=== PATIENT | male | born 1995 | race Caucasian/White ===

== ENCOUNTER 2020-08-04 11:17 | Emergency (ER) | payer BC, SELFPAY ==
[2020-08-04 11:38] VITALS: BP 126/62; PULSE 60; RESP 16; TEMP 37.1; O2SAT 98; BMI 24.3
[2020-08-04 11:43] VITALS: BP 126/62; PULSE 60; RESP 16; TEMP 37.1; O2SAT 98
--- NOTE | 2020-08-04 11:44 | HMH.EDUTC ---
[facility] [place] Disposition Clinical Impression: Viral syndrome, Exposure to COVID-19 virus Disposition: Home, Self-Care Condition on Discharge: Good Instructions: Preventing the Spread of Coronavirus Discharge Instructions Additional Instructions: Drink plenty of fluids. Take tylenol for pain or fever. Return if you begin to have difficulty breathing. Follow up with your regular doctor. GO TO THE ER FOR ANY WORSENING SYMPTOMS Prescriptions: Azithromycin [Z-Ej 250mg Tab*] 250 mg PO UD DOSE PK #6 tab Transmission Status: Pending to [facility] Referrals: Jeremiah Shrestha MD [Primary Care Provider] - Time of Disposition: 11:57 Medical Decision Making - Medical Records Medical records reviewed: No: I reviewed the patient's medical records. - Christ Inquiry Pt receiving controlled substance: No Vital Signs: 08/04/20 11:38 08/04/20 11:43 Temperature 98.7 F 98.7 F Temperature Source Oral Oral Pulse Rate 60 Pulse Rate [Left] 60 Respiratory Rate 16 16 Blood Pressure 126/62 Blood Pressure [Right Arm] 126/62 Blood Pressure Mean [Right Arm] 83 Blood Pressure Source [Right Arm] Automatic Cuff Blood Pressure Position [Right Arm] Sitting 02 Sat by Pulse Oximetry 98 Oxygen Delivery Method Room Air Orders (Tests/Meds): ORDERS Category Date Time Status Covid-19 Nasal PCR Sendout P&C Routine Lab 08/04/20 11:30 Received [facility] [place] HPI - General Stated complaint: covid test Time Seen by Provider: 08/04/20 11:44 Mode of Arrival: Ambulatory Source of Information: Patient Limitations: No Limitations Description of Symptoms (Recalled from Triage Doc. by RN): Covid test-symptomatic unknown exposure HEENT Symptoms (Recalled from RN notes): Yes Resp Symptoms (Recalled from RN notes): No Skin Symptoms (Recalled from RN notes): No MS Symptoms (Recalled from RN notes): No Functional Status (Recalled from RN notes): wnl - History of Present Illness Provider Complaint: He states that he has not had a sense of taste and smell for the past 2 days. He has also had a sore throat. - Related Data Previous Rx's Medication Instructions Recorded Azithromycin [Z-Ej 250mg Tab*] 250 mg PO UD DOSE PK #6 tab 08/04/20 Allergies Allergy/AdvReac Type Severity Reaction Status Date / Time No Known Allergies Allergy Verified 08/04/20 11:41 - Worker's Comp Is this a Worker's Comp case?: No Is this an H Worker's Comp?: No Is this a Kimberly Worker's Comp?: No [facility] History - Hepatitis A Screen Drug use history?: No High risk sexual behaviors?: No History of sexually transmitted infection?: No Currently employed?: No Childcare worker?: No Do you have indoor plumbing?: Yes Do you have electricity?: Yes Attestation statement:: This patient has been screened for Hepatitis A risk factors. I have reviewed the patient's past medical history: Yes Laterality Cases: Bilateral: Tonsillectomy - Social History Smoking Status: Current every day smoker Tobacco Type: cigarettes, smokeless tobacco # Packs/Day (cigarettes): 1 Alcohol Intake: never Alcohol Intake Frequency:: a few times a month Substance Use Type: marijuana Occupational Status: employed Housing: house Household Members: significant other Family Hx:: Cancer, Hypertension, Heart Attack ROS Obtained: Yes All systems reviewed & no additional complaints - Constitutional Constitutional: Reports system reviewed and no additional complaints, except as docu, Reports chills, Denies fever(s), Reports poor appetite, Reports malaise - Eyes Eyes: Reports system reviewed and no additional complaints, except as docu - ENT Ears, Nose, Mouth, and Throat: Reports system reviewed and no additional complaints, except as docu - Cardiovascular Cardiovascular: Reports system reviewed and no additional complaints, except as docu - Respiratory Respiratory: Yes system reviewed and no additional complaints, except as docu - Gastrointestinal Angela
[2020-08-05 09:19] LABS: Covid-19 Nasal PCR Sendout P&C POSITIVE
--- NOTE | 2020-08-05 10:03 | PC.NURSE ---
ATTEMPTED TO CALL PT. NO ANSWER, WILL TRY AGAIN LATER.
--- NOTE | 2020-08-05 10:57 | PC.NURSE ---
PT NOTIFIED OF POSITIVE COVID RESULT
== END 2020-08-04 12:20 | disposition home or self-care (01) ==
PROVIDERS: Emergency Provider Nurse Practitioner Family; PCP Family Medicine
DX: U07.1 COVID-19 (principal); F17.210 Nicotine dependence, cigarettes, uncomplicated
CPT/HCPCS: 99201; U0004

== ENCOUNTER 2020-12-04 16:39 | Emergency (ER) | payer BC, SELFPAY ==
[2020-12-04 16:47] VITALS: BP 124/64; PULSE 78; RESP 19; TEMP 36.6; O2SAT 100; BMI 23.6
--- NOTE | 2020-12-04 17:12 | HMH.EDUTC ---
[facility] [place] Disposition Clinical Impression: STD exposure Disposition: Home, Self-Care Condition on Discharge: Good Instructions: Chlamydia: The Silent STD Additional Instructions: Take the medication as directed. Follow up with your primary care doctor for the results of your test. GO TO THE ER FOR ANY WORSENING SYMPTOMS OR CONCERNS Prescriptions: Azithromycin [Azithromycin 500mg Tab] 1,000 mg PO ONCE #2 tab Transmission Status: Received by [facility] Referrals: Julia Silva MD [Primary Care Provider] - Time of Disposition: 17:17 Medical Decision Making - Medical Records Medical records reviewed: No: I reviewed the patient's medical records. - Christ Inquiry Pt receiving controlled substance: No Vital Signs: 12/04/20 16:47 Temperature 97.8 F Temperature Source Oral Pulse Rate [Right] 78 Respiratory Rate 19 Blood Pressure [Right Arm] 124/64 Blood Pressure Mean [Right Arm] 84 02 Sat by Pulse Oximetry 100 Oxygen Delivery Method Room Air [facility] HPI - General Stated complaint: STD test Time Seen by Provider: 12/04/20 17:12 Mode of Arrival: Ambulatory Source of Information: Patient Limitations: No Limitations Description of Symptoms (Recalled from Triage Doc. by RN): PT REQUESTS TESTING FOR CHLAMYDIA. EXGIRLFRIEND CALLED HIM AND STATES SHE HAS IT. HEENT Symptoms (Recalled from RN notes): No Resp Symptoms (Recalled from RN notes): No Skin Symptoms (Recalled from RN notes): No MS Symptoms (Recalled from RN notes): No Functional Status (Recalled from RN notes): NA - History of Present Illness Provider Complaint: He states that his ex-girlfriend notified him that she was positive for chlamydia. He denies any symptoms. - Related Data Previous Rx's Medication Instructions Recorded Azithromycin [Z-Ej 250mg Tab*] 250 mg PO UD DOSE PK #6 tab 08/04/20 Azithromycin [Azithromycin 500mg 1,000 mg PO ONCE #2 tab 12/04/20 Tab] Allergies Allergy/AdvReac Type Severity Reaction Status Date / Time No Known Allergies Allergy Verified 12/04/20 16:47 - Worker's Comp Is this a Worker's Comp case?: No [facility] History - Hepatitis A Screen Drug use history?: No High risk sexual behaviors?: No History of sexually transmitted infection?: No Currently employed?: No Childcare worker?: No Do you have indoor plumbing?: Yes Do you have electricity?: Yes Attestation statement:: This patient has been screened for Hepatitis A risk factors. I have reviewed the patient's past medical history: Yes Laterality Cases: Bilateral: Tonsillectomy - Social History Smoking Status: Current every day smoker Tobacco Type: cigarettes, smokeless tobacco # Packs/Day (cigarettes): 1 Alcohol Intake: never Alcohol Intake Frequency:: a few times a month Substance Use Type: marijuana Occupational Status: unemployed Housing: house Household Members: significant other Family Hx:: Cancer, Hypertension, Heart Attack ROS Obtained: Yes All systems reviewed & no additional complaints - Constitutional Constitutional: Denies chills, Denies fever(s) - Genitourinary Male Genitourinary: Reports as per HPI - Musculoskeletal Musculoskeletal: Denies back pain - Integumentary/Breasts Skin/Breast: Denies redness, Denies rash, Denies skin ulcer, Denies wounds - Neurologic Neurologic: Denies tingling/numbness/burning sensations Physical Exam - General General appearance: alert, in no apparent distress - Head Head exam: atraumatic, normocephalic, normal inspection - Eye Eye exam: Present: normal appearance, PERRL, EOMI - ENT ENT exam: Present: normal exam, normal oropharynx, mucous membranes moist, TM's normal bilaterally, normal external ear exam - Neck Neck exam: Present: normal inspection, full ROM, trachea midline. Absent: meningismus, lymphadenopathy - Chest Chest inspection: Present: normal inspection, symmetric chest wall rise. Absent: tenderness - Respiratory Respiratory exam: Present:
[2020-12-04 17:36] VITALS: BP 119/74; PULSE 74; RESP 16; TEMP 36.6
[2020-12-08 23:42] LABS: Neisseria gonorrhoeae, NAA Negative (Negative)
== END 2020-12-04 17:36 | disposition home or self-care (01) ==
PROVIDERS: Emergency Provider Nurse Practitioner Family; PCP Family Medicine
DX: Z20.2 Contact with and (suspected) exposure to infections with a predominantly sexual mode of transmission (principal)
CPT/HCPCS: 87491; 87591; 99202; G0463

== ENCOUNTER 2020-12-22 10:31 | Emergency (ER) | payer BC, SELFPAY ==
[2020-12-22 10:38] VITALS: BP 129/78; PULSE 70; RESP 18; TEMP 36.4; O2SAT 100; BMI 24.3
--- NOTE | 2020-12-22 10:39 | ECG_ITS ---
APPROVED REPORT Exam: Resting ECG HR:47 bpm ECG Measurements Heart Rate 47 AXES VA 150 P 56 QRSd 92 QRS 92 QT 418 T 74 QTc 369 Conclusion Marked sinus bradycardia Rightward axis Early repolarization Abnormal ECG Electronically signed by : Jeremiah Xie, 12/22/2020 17:43:42
--- NOTE | 2020-12-22 10:41 | HMH.EDGENADL ---
ED Disposition Clinical Impression: Vasovagal syncope Disposition: Home, Self-Care Condition on Discharge: Good Instructions: DI for Syncope in Adults (Fainting), Fainting Additional Instructions: You have been evaluated for syncopal episode, vasovagal. This is passing out that is related to an emotional event. Please continue to monitor your symptoms. Return to the emergency department if you have any dish no syncopal episodes, seizure-like activity, chest pain, shortness of breath, any other concerns. Referrals: Jeremiah Shrestha MD [Primary Care Provider] - Time of Disposition: 10:47 - Critical Care Critical Care Time: No Attestation: On , the high probability of a clinically significant, sudden or life threatening deterioration of the following system(s) required my full and direct attention, intervention and personal management. The time I documented below is in addition to time spent performing reported procedures but includes the following listed in this critical care notation. Medical Decision Making - Medical Records Medical records reviewed: Yes: I reviewed the patient's medical records. - Christ Inquiry Pt receiving controlled substance: No Vital Signs: 12/22/20 10:38 12/22/20 10:45 Temperature 97.6 F Temperature Source Oral Pulse Rate 56 L Pulse Rate [Right] 70 Respiratory Rate 18 Blood Pressure 129/78 Blood Pressure [Right Arm] 129/78 Blood Pressure Mean [Right Arm] 95 Blood Pressure Source [Right Arm] Automatic Cuff Blood Pressure Position [Right Arm] Supine 02 Sat by Pulse Oximetry 100 100 Oxygen Delivery Method Room Air - Lab Data Lab Results 12/22/20 10:35: WBC 9.6, RBC 4.80, Hgb 15.5, Hct 49.4, MCV 103.0 H, MCH 32.4 H, MCHC 31.4 L, RDW 12.8, Plt Count 261, MPV 7.3 L, Neut % (Auto) 51.4, Lymph % (Auto) 40.5, [place] % (Auto) 5.7, Eos % (Auto) 1.4, Baso % (Auto) 1.0, Neut # (Auto) 5.0, Lymph # (Auto) 3.9, [place] # (Auto) 0.6, Eos # (Auto) 0.1, Baso # (Auto) 0.1 12/22/20 10:35: Sodium 139, Potassium 4.0, Chloride 104, Carbon Dioxide 25, Anion Gap 14.0, BUN 14, Creatinine 0.80, Estimated Creat Clear 151, Estimated GFR 119, Est GFR ( Amer) 144, Glucose 130 H, Calcium 9.5 12/22/20 10:38: POC Glucose 112 H Result diagrams: 12/22/20 10:35 12/22/20 10:35 Orders (Tests/Meds): ED MEDICATIONS Discontinued Medications Generic Name Dose Route Start Last Admin Trade Name Freq PRN Reason Stop Dose Admin Ondansetron HCl 4 mg 12/22/20 10:50 12/22/20 10:50 Ondansetron 4mg/2ml Vial IV 12/22/20 10:51 4 mg ONCE ONE Administration ORDERS Category Date Time Status EKG Request [ECG Request by /Edu] Stat Y 12/22/20 10:39 Ordered Medical Decision Narrative: In summary this is a 25-year-old male presenting to the emergency department after a syncopal episode. Patient clinically stable on arrival. Vital signs within normal limits. Most likely diagnosis is vasovagal syncope. He does not have symptoms at this time besides nausea. Will obtain EKG, CBC, BMP. Fingerstick blood glucose is 127. EKG reassuring. No signs of ischemia or arrhythmia. Laboratory results unrevealing. On reassessment patient says he is feeling much better. He was able to tolerate oral intake, orange juice, in the emergency department. Given that this sounds to be an isolated event during a blood draw, do not believe that it was cardiac mediated syncope. Description of event does not sound like seizure. Patient counseled on precautions. Recommended close follow-up with his PCP. Return to the emergency department for any further episodes or any other concerns. General Adult HPI - General Stated complaint: possible seizure in Dr Longoria's office Time Seen by Provider: 12/22/20 10:42 Mode of Arrival: Wheelchair Source of Information: Patient, Relative - History of Present Illness HPI narrative: 25-year-old male presenting to the emergency department after a syncopal ep
[2020-12-22 10:45] VITALS: BP 129/78; PULSE 56; O2SAT 100
[2020-12-22 10:45] LABS: POC Glucose,Bedside 112 (70-110)
[2020-12-22 10:58] LABS: Chloride 104 mmol/L (98-107); Sodium 139 mmol/L (136-145)
[2020-12-22 10:59] LABS: Basophils # 0.1 K/mm3 (0-0.2); Eosinophils # 0.1 K/mm3 (0.0-0.4); Eosinophils % 1.4 % (0.1-12.0); Hematocrit 49.4 % (42.0-52.0); Hemoglobin 15.5 g/dL (14.1-18.0); Lymphocytes # 3.9 K/mm3 (0.7-4.5); Lymphocytes % 40.5 % (10-50); Mean Corpuscular HGB Conc 31.4 g/dL (31.8-35.4); Mean Corpuscular Hemoglobin 32.4 pg (27.0-31.2); Mean Platelet Volume 7.3 fl (7.4-10.4); Monocytes # 0.6 K/mm3 (0.1-1.0); Monocytes % 5.7 % (1.7-9.3); Neutrophils % 51.4 % (37.0-80.0); Platelet Count 261 K/mm3 (142-424); Red Cell Distribution Width 12.8 % (11.5-17.5); White Blood Count 9.6 K/mm3 (4.8-10.8)
[2020-12-22 11:01] LABS: Blood Urea Nitrogen 14 mg/dl (9-20); Creatinine Clearance Estimated 151 mL/min (50-200); Estimated Glomerular Filt Rate 119 ml/min (>60); GFR (African American) 144 ML/MIN (>60)
[2020-12-22 11:02] LABS: Calcium 9.5 mg/dl (8.4-10.2); Carbon Dioxide 25 mmol/L (22.0-30.0); Glucose 130 mg/dl (74-100)
[2020-12-22 11:40] VITALS: BP 108/57; PULSE 56; RESP 16; TEMP 36.8; O2SAT 98
== END 2020-12-22 11:41 | disposition home or self-care (01) ==
PROVIDERS: Emergency Provider Emergency Medicine; PCP Family Medicine
DX: R55 Syncope and collapse (principal); F17.290 Nicotine dependence, other tobacco product, uncomplicated; F12.10 Cannabis abuse, uncomplicated
CPT/HCPCS: 80048; 82962; 85025; 93005; 96374; 99282; J2405

== ENCOUNTER 2021-01-04 02:16 | Emergency (ER) | payer BC, SELFPAY ==
[2021-01-04 02:28] VITALS: BP 111/61; PULSE 58; RESP 24; TEMP 36.4; O2SAT 100; BMI 21.7
[2021-01-04 02:44] LABS: Basophils # 0.1 K/mm3 (0-0.2); Basophils % 0.5 % (0.1-2.0); Eosinophils # 0.1 K/mm3 (0.0-0.4); Eosinophils % 0.7 % (0.1-12.0); Hematocrit 49.2 % (42.0-52.0); Hemoglobin 16.5 g/dL (14.1-18.0); Lymphocytes # 2.8 K/mm3 (0.7-4.5); Mean Corpuscular HGB Conc 33.5 g/dL (31.8-35.4); Mean Corpuscular Hemoglobin 33.2 pg (27.0-31.2); Mean Corpuscular Volume 99.1 fl (80-94); Mean Platelet Volume 7.5 fl (7.4-10.4); Monocytes # 0.7 K/mm3 (0.1-1.0); Monocytes % 3.8 % (1.7-9.3); Neutrophils # 13.6 K/mm3 (1.8-7.8); Neutrophils % 79.1 % (37.0-80.0); Platelet Count 267 K/mm3 (142-424); Red Blood Count 4.96 M/mm3 (4.60-6.20); Red Cell Distribution Width 12.9 % (11.5-17.5); White Blood Count 17.2 K/mm3 (4.8-10.8)
[2021-01-04 02:47] LABS: MANUAL DIFFERENTIAL MANUAL DIFFERENTIAL (MANUAL DIFF)
[2021-01-04 02:48] LABS: Chloride 106 mmol/L (98-107)
[2021-01-04 02:49] LABS: Sodium 141 mmol/L (136-145)
[2021-01-04 02:51] LABS: Alanine Aminotransferase 23 U/L (12-78); Aspartate Amino Transferase 34 U/L (17-59); Bilirubin,Total 0.3 mg/dl (0.2-1.3); Blood Urea Nitrogen 11 mg/dl (9-20); Creatinine Clearance Estimated 145 mL/min (50-200); Estimated Glomerular Filt Rate 118 ml/min (>60); GFR (African American) 143 ML/MIN (>60)
[2021-01-04 02:52] LABS: Albumin/Globulin Ratio 1.9 (1.1-1.8); Alkaline Phosphatase 73 U/L (38-126); Calcium 9.2 mg/dl (8.4-10.2); Carbon Dioxide 13 mmol/L (22.0-30.0); Globulin 2.6 g/dL (1.3-3.2); Glucose 188 mg/dl (74-100); Lipase 51 U/L (23-300); Total Protein,Serum 7.6 g/dl (6.3-8.2)
[2021-01-04 03:00] VITALS: BP 110/57; PULSE 64; O2SAT 96
[2021-01-04 03:28] LABS: Eosinophils % 1 % (0-3); Lymphocytes % 13 % (10-50); Monocytes % 3 % (2-9); Neutrophils % 76 % (42-76); Platelet Estimate Normal; RBC Morphology Normal; Total Cells Counted 100
[2021-01-04 03:30] VITALS: BP 117/50; PULSE 60; O2SAT 95
--- NOTE | 2021-01-04 03:46 | PC.NURSE ---
Pt does not want to give a urine sample
[2021-01-04 04:00] VITALS: BP 110/56; PULSE 82; O2SAT 96
--- NOTE | 2021-01-04 04:00 | CT_ITS ---
PROCEDURE INFORMATION: Exam: CT Abdomen And Pelvis With Contrast Exam date and time: 01/04/2021 4:00 AM Age: 26 years old Clinical indication: Abdominal pain; Generalized; Patient HX: PT not complaining of any current pain, said had some SOA when came in, PT states large amount of alcohol consumption tonight; Additional info: Appendicitis TECHNIQUE: Imaging protocol: Computed tomography of the abdomen and pelvis with contrast. Radiation optimization: All CT scans at this facility use at least one of these dose optimization techniques: automated exposure control; mA and/or kV adjustment per patient size (includes targeted exams where dose is matched to clinical indication); or iterative reconstruction. Contrast material: ISOVUE; Contrast volume: 370 ml; Contrast route: IV; COMPARISON: No relevant prior studies available. FINDINGS: Lungs: There is a calcified granuloma in the left lung base. Liver: Normal. No mass. Gallbladder and bile ducts: Normal. No calcified stones. No ductal dilation. Pancreas: Normal. No ductal dilation. Spleen: Multiple splenic granulomas are present. Adrenal glands: Normal. No mass. Kidneys and ureters: Normal. No hydronephrosis. Stomach and bowel: Unremarkable. No obstruction. No mucosal thickening. Appendix: The appendix is top normal at 7.9 mm. No inflammatory changes noted. No adjacent fluid collections are seen Intraperitoneal space: Unremarkable. No free air. No significant fluid collection. Vasculature: Unremarkable. No abdominal aortic aneurysm. Lymph nodes: Unremarkable. No enlarged lymph nodes. Urinary bladder: Unremarkable as visualized. Reproductive: Unremarkable as visualized. Bones/joints: Unremarkable. No acute fracture. Soft tissues: Unremarkable. IMPRESSION: 1. No acute process or mass to explain the patient's abdominal pain. 2. The appendix is top-normal in size but no inflammatory change or other secondary signs of acute appendicitis are noted.
--- NOTE | 2021-01-04 04:38 | HMH.EDABDPAI ---
ED Disposition Clinical Impression: Cannabinoid hyperemesis syndrome UTI (urinary tract infection) Qualifiers: Urinary tract infection type: acute cystitis Hematuria presence: without hematuria Qualified Code(s): N30.00 - Acute cystitis without hematuria Disposition: Home, Self-Care Condition on Discharge: Good Instructions: DI for Acute Abdominal Pain, DI for Acute Cystitis Additional Instructions: Finish the entire course of antibiotics and return to the ED for any new or worsening symptoms. Prescriptions: Cefdinir [Omnicef 300mg Capsule] 300 mg PO BID #20 cap Transmission Status: Pending to [facility] Referrals: Jeremiah Shrestha MD [Primary Care Provider] - Time of Disposition: 05:25 - Critical Care Critical Care Time: No Attestation: On 01/04/21, the high probability of a clinically significant, sudden or life threatening deterioration of the following system(s) required my full and direct attention, intervention and personal management. The time I documented below is in addition to time spent performing reported procedures but includes the following listed in this critical care notation. Medical Decision Making - Medical Records Medical records reviewed: Yes: I reviewed the patient's medical records. - Christ Inquiry Pt receiving controlled substance: No Vital Signs: 01/04/21 02:28 01/04/21 03:00 01/04/21 03:30 Temperature 97.5 F L Temperature Source Oral Pulse Rate 64 60 Pulse Rate [Right] 58 L Respiratory Rate 24 Blood Pressure 110/57 L 117/50 L Blood Pressure [Left Arm] 111/61 Blood Pressure Mean [Left Arm] 77 Blood Pressure Source [Left Arm] Automatic Cuff Blood Pressure Position [Left Arm] Supine 02 Sat by Pulse Oximetry 100 96 95 Oxygen Delivery Method Room Air 01/04/21 04:00 Temperature Temperature Source Pulse Rate 82 Pulse Rate [Right] Respiratory Rate Blood Pressure 110/56 L Blood Pressure [Left Arm] Blood Pressure Mean [Left Arm] Blood Pressure Source [Left Arm] Blood Pressure Position [Left Arm] 02 Sat by Pulse Oximetry 96 Oxygen Delivery Method - Lab Data Lab Results 01/04/21 02:25: WBC 17.2 H, RBC 4.96, Hgb 16.5, Hct 49.2, MCV 99.1 H, MCH 33.2 H, MCHC 33.5, RDW 12.9, Plt Count 267, MPV 7.5, Neut % (Auto) 79.1, Lymph % (Auto) 16.0, [place] % (Auto) 3.8, Eos % (Auto) 0.7, Baso % (Auto) 0.5, Neut # (Auto) 13.6 H, Lymph # (Auto) 2.8, [place] # (Auto) 0.7, Eos # (Auto) 0.1, Baso # (Auto) 0.1, Total Counted 100, Neutrophils % (Manual) 76, Lymphocytes % (Manual) 13, Atypical Lymphs % 7.0, Monocytes % (Manual) 3, Eosinophils % (Manual) 1, Platelet Estimate Normal, RBC Morphology Normal 01/04/21 02:25: Sodium 141, Potassium 4.0, Chloride 106, Carbon Dioxide 13 L, Anion Gap 26.0 H, BUN 11, Creatinine 0.80, Estimated Creat Clear 145, Estimated GFR 118, Est GFR ( Amer) 143, Glucose 188 H, Calcium 9.2, Total Bilirubin 0.3, AST 34, ALT 23, Alkaline Phosphatase 73, Total Protein 7.6, Albumin 5.0, Globulin 2.6, Albumin/Globulin Ratio 1.9 H 01/04/21 02:25: Lipase 51 01/04/21 04:47: Urine Color Yellow, Urine Appearance Clear, Urine pH 6.0, Ur Specific [place] 1.020, Urine Protein Negative, Urine Glucose (UA) Trace, Urine Ketones Trace, Urine Blood Negative, Urine Nitrate Negative, Urine Bilirubin Negative, Urine Urobilinogen 0.2, Ur Leukocyte Esterase Negative, Urine WBC Occasional, Ur Squamous Epith Cells Occasional, Urine Bacteria Trace, Urine Mucus 2+ 01/04/21 04:47: Urine Opiates Screen Negative, Urine Methadone Screen Negative, Ur Barbituates Screen Negative, Ur Phencyclidine Scrn Negative, Ur Amphetamines Screen Negative, U Benzodiazepines Scrn Negative, Urine Cocaine Screen Negative, U Marijuana (THC) Screen Positive H Result diagrams: 01/04/21 02:25 01/04/21 02:25 Orders (Tests/Meds): ED MEDICATIONS Discontinued Medications Generic Name Dose Route Start Last Admin Trade Name Freq PRN Reason Stop Dose Admin Cefdinir 300 mg
[2021-01-04 04:55] LABS: Microscopic, Urine URINE MICROSCOPIC (MICROSCOPIC)
[2021-01-04 05:00] LABS: Appearance,Urine CLEAR (Clear); Bilirubin,Urine Negative (Negative); Blood, Urine Negative (Negative); Color,Urine YELLOW (Yellow); Glucose,Urine (UA) TRACE (Negative); Ketones,Urine TRACE (Negative); Leukocyte Esterase,Urine Negative (Negative); Nitrate,Urine Negative (Negative); Protein,Urine Negative (Negative); Urobilinogen,Urine 0.2 EU/dl (0.2)
[2021-01-04 05:07] LABS: Bacteria,Urine Trace /lpf; Mucus,Urine 2+ /lpf; Squamous Epithelial Cell,Urine Occasional #/hpf (0-5); WBC,Urine Occasional #/hpf (0-3)
[2021-01-04 05:12] LABS: Amphetamine/Metha Screen,Urine Negative ng/ml (<1000)
[2021-01-04 05:13] LABS: Barbiturates Screen,Urine Negative ng/ml (<200); Benzodiazepines Screen,Urine Negative ng/ml (<200)
[2021-01-04 05:14] LABS: Cannabinoid Screen,Urine Positive ng/ml (<50)
[2021-01-04 05:15] LABS: Cocaine Screen,Urine Negative ng/ml (<300); Methadone Screen,Urine Negative ng/ml (<300)
[2021-01-04 05:16] LABS: Opiate Screen,Urine Negative ng/ml (<300); Phencyclidine Screen,Urine Negative ng/ml (<25)
[2021-01-04 05:41] VITALS: BP 109/48; PULSE 56; RESP 14; TEMP 36.4; O2SAT 99
== END 2021-01-04 05:43 | disposition home or self-care (01) ==
PROVIDERS: Emergency Provider Student in an Organized Health Care Education/Training Program; PCP Family Medicine
DX: N30.00 Acute cystitis without hematuria (principal); R11.2 Nausea with vomiting, unspecified; F12.120 Cannabis abuse with intoxication, uncomplicated; F10.929 Alcohol use, unspecified with intoxication, unspecified; F17.210 Nicotine dependence, cigarettes, uncomplicated
CPT/HCPCS: 74177; 80053; 80305; 81001; 83690; 85007; 85025; 96374; 99283; Q9967

== ENCOUNTER 2021-03-20 12:21 | Emergency (ER) | payer BC, SELFPAY ==
[2021-03-20 13:46] VITALS: BP 00/00; PULSE 0; RESP 0; TEMP -17.7; TEMP 0
== END 2021-03-20 13:47 | disposition left against medical advice (07) ==
LOC: UTC 12:24
PROVIDERS: Emergency Provider Nurse Practitioner; PCP Family Medicine
DX: Z53.21 Procedure and treatment not carried out due to patient leaving prior to being seen by health care provider (principal)

== ENCOUNTER 2021-03-22 12:45 | Emergency (ER) | payer BC, SELFPAY ==
[2021-03-22 13:18] VITALS: BP 111/55; PULSE 64; RESP 16; TEMP 36.9; O2SAT 98; BMI 24.7
--- NOTE | 2021-03-22 13:19 | HMH.EDUTC ---
[facility] [place] Disposition Clinical Impression: Exposure to COVID-19 virus Disposition: Home, Self-Care Condition on Discharge: Good Instructions: DI for COVID-19 (Suspected or Confirmed ), Preventing the Spread of Coronavirus Discharge Instructions Additional Instructions: Drink plenty of fluids. Take tylenol for pain or fever. Return if you begin to have difficulty breathing. Follow up with your regular doctor. GO TO THE ER FOR ANY WORSENING SYMPTOMS Quarantine until you know the results of your covid-19 test. If it is positive, the health department should call you and give you further instructions about your length of Quarantine and other thing. Referrals: Jeremiah Shrestha MD [Primary Care Provider] - Time of Disposition: 13:20 Medical Decision Making - Medical Records Medical records reviewed: No: I reviewed the patient's medical records. - Christ Inquiry Pt receiving controlled substance: No Vital Signs: 03/22/21 13:18 03/22/21 13:22 Temperature 98.5 F 0 F L Temperature Source Oral Pulse Rate 0 L Pulse Rate [Left] 64 Respiratory Rate 16 0 L Blood Pressure 0/0 L Blood Pressure [Right Arm] 111/55 L Blood Pressure Mean [Right Arm] 73 02 Sat by Pulse Oximetry 98 [facility] [place] HPI - General Stated complaint: covid test Time Seen by Provider: 03/22/21 13:30 - History of Present Illness Provider Complaint: He is here needing a covid test. He denies any symptoms so far. - Related Data Previous Rx's Medication Instructions Recorded Cefdinir [Omnicef 300mg Capsule] 300 mg PO BID #20 cap 01/04/21 Allergies Allergy/AdvReac Type Severity Reaction Status Date / Time No Known Allergies Allergy Verified 12/04/20 16:47 [facility] History - Hepatitis A Screen Attestation statement:: This patient has been screened for Hepatitis A risk factors. I have reviewed the patient's past medical history: Yes Medical History: Denies:: Diabetes Mellitus Type 1, Diabetes Mellitus Type 2 Laterality Cases: Bilateral: Tonsillectomy - Social History Smoking Status: Current every day smoker Tobacco Type: cigarettes, e-cigarettes # Packs/Day (cigarettes): 1 Alcohol Intake: current Alcohol Intake Frequency:: 0-2 drinks per day Substance Use Type: marijuana Occupational Status: employed Housing: house Household Members: significant other Family Hx:: Cancer, Hypertension, Heart Attack ROS Obtained: Yes All systems reviewed & no additional complaints - Constitutional Constitutional: Reports system reviewed and no additional complaints, except as docu - Eyes Eyes: Reports system reviewed and no additional complaints, except as docu - ENT Ears, Nose, Mouth, and Throat: Reports system reviewed and no additional complaints, except as docu - Cardiovascular Cardiovascular: Reports system reviewed and no additional complaints, except as docu - Respiratory Respiratory: Reports system reviewed and no additional complaints, except as docu - Gastrointestinal Gastrointestingal: Reports: system reviewed and no additional complaints, except as docu Physical Exam - General General appearance: alert, in no apparent distress - Head Head exam: atraumatic, normocephalic, normal inspection - Eye Eye exam: Present: normal appearance, PERRL, EOMI - ENT ENT exam: Present: normal exam, normal oropharynx, mucous membranes moist, TM's normal bilaterally, normal external ear exam - Neck Neck exam: Present: normal inspection, full ROM, trachea midline. Absent: meningismus, lymphadenopathy - Chest Chest inspection: Present: normal inspection, symmetric chest wall rise. Absent: tenderness - Respiratory Respiratory exam: Present: normal lung sounds bilaterally. Absent: respiratory distress - Cardiovascular Cardiovascular exam: Present: regular rate, normal rhythm. Absent: JVD - Abdominal Exam Abdominal exam: Present: soft, normal bowel sounds. Absent: distention, tenderness, guarding
[2021-03-22 13:22] VITALS: BP 0/0; PULSE 0; RESP 0; TEMP -17.7; TEMP 0
== END 2021-03-22 13:30 | disposition home or self-care (01) ==
PROVIDERS: Emergency Provider Nurse Practitioner Family; PCP Family Medicine
DX: Z20.822 Contact with and (suspected) exposure to COVID-19 (principal)
CPT/HCPCS: 99202; G0463; U0003

== ENCOUNTER 2024-12-27 08:04 | Emergency (ER) | payer SELFPAY ==
[2024-12-27 08:14] VITALS: BP 139/69; PULSE 72; RESP 16; TEMP 36.7; O2SAT 98; BMI 23.6
--- NOTE | 2024-12-27 08:15 | ED_ITS ---
Discharge Plan Disposition Patient Disposition: Home, Self-Care Condition: Good Prescriptions Prescriptions: New bacitracin 500 unit/gram packet 1 applic topical BID Qty: 144 0RF No Action cefdinir 300 MG capsule 300 mg PO BID Qty: 20 0RF Referrals Follow up/Referrals: Jeremiah Shrestha MD [Primary Care Provider] - See instructions Clinical Impressions Clinical Impression: Laceration Instructions Patient Instructions: DI for Laceration Repair Print Language Print Language: Estonian Discharge ED Provider: Dandy Spangler General Adult HPI General Chief complaint: Wound/Laceration Stated complaint: AO-12/26 2029 hours- cut by [employer], L arm Time Seen by Provider: 12/27/24 08:15 History of Present Illness HPI narrative: Patient is a 29-year-old male with no significant past medical history who presents today after a left arm laceration. He was working on a vehicle yesterday underneath of it when he stood up and scraped his left arm against the marco fender. He has about a 2-1/2 cm laceration with no bleeding noted. He is unsure of his last tetanus shot. He denies any numbness weakness tingling and denies injuries anywhere else. Related Data Previous Rx's ?Medication ?Instructions ?Recorded cefdinir 300 mg capsule 300 mg PO BID #20 caps 01/04/21 bacitracin 500 unit/gram topical 1 applic topical BID #144 ea 12/27/24 packet Allergies Allergy/AdvReac Type Severity Reaction Status Date / Time No Known Allergies Allergy Verified 12/04/20 16:47 [facility] Disclaimer: The information contained in this section may have been updated after the patient was seen, as this information can be updated by other users. Social History Smoking Status: Never smoker second hand exposure: No alcohol intake: current alcohol intake frequency: 0-2 drinks per day substance use type: marijuana current occupational status: employed Travel in the last 8 weeks?: None household members: significant other housing: house current occupational exposures/hazards: No Have you lived/traveled outside [place] in past 30 days?: No Contact w/someone who lives/traveled outside [place] past 30 days?: No Exposure to someone with infectious disease in past 14 days?: No Do you have a fever (greater than 100.4 F or 38 C)?: No Have you tested positive for COVID-19?: No Exposed to someone with COVID-19 in past 14 days?: No Do you have a sore throat?: No Do you have a cough?: No Do you have any weakness?: No Do you have any diarrhea?: No Are you experiencing any unusual bleeding?: No Do you have any muscle aches/pain?: No Do you have any abdominal pain?: No Are you experiencing loss of taste or smell?: No Other Medical History Have you received the Flu Vaccine for this season: No Have you received the Pneumonia Vaccine: No ROS Obtained: Yes All systems reviewed & no additional complaints except as documented Physical Exam General General appearance: alert and in no apparent distress Head Head exam: atraumatic and normocephalic Eye Eye exam: Present normal appearance Chest Chest inspection: Present symmetric chest wall rise Respiratory Respiratory exam: Absent respiratory distress or stridor Cardiovascular Cardiovascular exam: Present regular rate and normal rhythm Abdominal Exam Abdominal exam: Absent distention exam: Present deferred Extremities Exam Extremities exam: Present normal inspection Neurological Exam Neurological exam: Present alert and oriented X3 Psychiatric Psychiatric exam: Present normal mood Skin Skin exam: Present warm, dry and other (2.5 cm linear superficial lac over lateral proximal LUE. hemostatic) Medical Decision Making Medical Records Screening: Per USPSTF and CDC recommendations, given the prevalence of disease in our [facility], it is our hospital?s policy to screen for HIV and viral Hepatitis for all patients aged 18 and over and those with ongoing risk factors. Christ Inquiry Pt receiving controlled substance: No Vital Signs: 12/27/24 08:14 Temperature 98.1 F Temperature Source Oral Pulse Rate [Right Radial] 72 Respiratory Rate 16 Blood Pressure [Right Arm] 139/69 Blood Pressure Mean [Right Arm] 92 Blood Pressure Source [Right Arm] Automatic Cuff Blood Pressure Position [Right Arm] Supine 02 Sat by Pulse Oximetry 98 Oxygen Delivery Method Room Air Orders (Tests/Meds): ED MEDICATIONS Generic Name Dose Route Start Last Admin Trade Name Freq PRN Reason Stop Dose Admin Bacitracin 1 each 12/27/24 09:01 12/27/24 09:11 Bacitracin Oint 0.9gm Udp TP 12/27/24 09:02 1 each ONCE ONE Administration Discontinued Medications Generic Name Dose Route Start Last Admin Trade Name Freq PRN Reason Stop Dose Admin Cocaine HCl 1 ml 12/27/24 08:32 12/27/24 08:41 Cocaine 4% Topical Soln 4ml Bottle TP 12/27/24 08:33 1 ml ONCE ONE Administration Epinephrine HCl 1 mg 12/27/24 08:32 12/27/24 08:40 Epinephrine 1 Mg/Ml Ampul TP 12/27/24 08:33 1 mg ONCE ONE Administration Lidocaine HCl 1 ml 12/27/24 08:32 12/27/24 08:42 Lidocaine 2% Urojet 10ml TP 12/27/24 08:33 1 ml ONCE ONE Administration Tetanus/Reduced Diphtheria/Acell Pertussis 0.5 ml 12/27/24 08:17 12/27/24 08:48 Tet/Diphth/Pert-Adult 0.5ml Syringe IM 12/27/24 08:18 0.5 ml .ONCE ONE Administration ORDERS Category Date Time Status HIV Combo Stat Lab 12/27/24 08:19 Ordered Hepatitis C Ab Qual. W/ RFX Stat Lab 12/27/24 08:19 Ordered Medical Decision Narrative: In summary, this 29-year-old male presents to the emergency department today with afebrile hemodynamically stable and neurovascularly intact. There is about a 2-1/2 cm laceration over the lateral aspect of his left proximal arm. It is superficial there is no exposed muscle belly or tendon beneath. I am able to visualize the entire depth of wound without evidence of foreign body.. Differential diagnosis includes but is not limited to laceration, abrasion, infection, foreign body. Based on these concerns, I ordered lidocaine with epinephrine a topical. Laceration repaired. Thoroughly irrigated. Bacitracin applied afterwards. See procedure note for the details. Patient tolerated procedure well. Strict precautions were discussed including infection control. I considered antibiotics outpatient, but was deferred given I was able to clean the wound thoroughly. Tdap updated. Of note, social determinants of health include poor health literacy. At this time it was felt that the patient was safe to be discharged home. The patient was in agreement with this plan. The patient was given strict return precautions prior to being discharged from the emergency department. Procedures Laceration Laceration 1: Site: upper extremity Side (If applicable): left Size (cm): 2.5 Description: linear Depth: simple, single layer Local Anesthetic: other anesthetic (topical LET) Pre-repair: wound explored and irrigated extensively Skin layer closed with: nylon Size (cm): 4-0 Number of sutures: 2 Technique: simple, interrupted Critical Care Critical Care Time Critical Care Time: No
[2024-12-27] MEDS: EPINEPHrine 1 MG/ML AMPUL TP (08:40)
[2024-12-27] MEDS: COCAINE 4% TOPICAL SOLN 4ML BOTTLE 1 ML TP (08:41)
[2024-12-27] MEDS: LIDOCAINE 2% UROJET 10ML TP (08:42)
[2024-12-27] MEDS: TET/DIPHTH/PERT-ADULT 0.5ML SYRINGE 0.5 ML IM (08:48)
[2024-12-27] MEDS: BACITRACIN OINT 0.9GM UDP 1 EACH TP (09:11)
[2024-12-27 09:20] VITALS: BP 118/72; PULSE 71; RESP 18; TEMP 36.8; O2SAT 98
== END 2024-12-27 09:20 | disposition home or self-care (01) ==
PROVIDERS: Emergency Provider Emergency Medicine; PCP Family Medicine
DX: S41.122A Laceration with foreign body of left upper arm, initial encounter (principal); W26.8XXA Contact with other sharp object(s), not elsewhere classified, initial encounter; Z23 Encounter for immunization
CPT/HCPCS: 12001; 90471; 90715; 99283; J0171